=== PATIENT | male | born 1945 | race Caucasian/White ===

== ENCOUNTER 2018-01-07 18:26 | Inpatient (IN) | payer MEDICARE, MEDICAID ==
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
[2018-01-07 18:55] LABS: % BASOPHILS 0.4 % (0.0-2.0); % EOSINOPHILS 0.8 % (0.0-5.0); % LYMPHOCYTES 40.1 % (20.0-50.0); % NEUTROPHILS 49.7 % (40.0-80.0); HEMATOCRIT 36.2 % (41.0-60); HEMOGLOBIN 12.1 gm/dL (12-16); LYMPHOCYTE ABSOLUTE 2.1 Th/cmm (1.5-3.0); MEAN CELL VOLUME 82.7 fl (80-99); MEAN CORPUSCULAR HEMOGLOBIN 27.5 pg (27.0-31.0); MEAN CORPUSCULAR HGB CONC 33.3 pg (28.0-36.0); MEAN PLATELET VOLUME 8.7 fl; MONOCYTE ABSOLUTE 0.5 Th/cmm (0.3-1.0); NEUTROPHILE ABSOLUTE 2.6 Th/cmm (1.8-8.0); PLATELET COUNT 216 Th/cmm (150-400); RED BLOOD COUNT 4.38 Mil/cmm (3.80-5.80); RED CELL DISTRIBUTION WIDTH 15.3 % (11.5-20.0); WHITE BLOOD COUNT 5.2 Th/cmm (4.8-10.8)
[2018-01-07 19:11] LABS: ALB/GLOB RATIO 1.1 (1.0-1.8); ALBUMIN 3.6 gm/dL (4.2-5.5); ANION GAP 11.4 (7.0-16.0); BILIRUBIN,TOTAL 0.3 mg/dL (0.3-1.0); CARBON DIOXIDE 25.4 mEq/L (21.0-31.0); CREATININE - SERUM 1.5 mg/dL (0.7-1.3); GFR AFRICAN-AMERICAN 59.5 ml/min (>90); GFR NON AFRICAN-AMERICAN 49.2 ml/min; POTASSIUM SERUM 3.8 mEq/L (3.5-5.1)
[2018-01-07] MEDS ORDERED: Magnesium Hydroxide (MOM) 30 mL UDC PO PRN (20:20)
[2018-01-07] MEDS ORDERED: Potassium Chloride 20 mEq ER Tab PO PRN (20:25)
[2018-01-07] MEDS ORDERED: Morphine Sulfate 4 mg/mL 1mL Syr IVP PRN (20:25)
[2018-01-07] MEDS ORDERED: Mag Sulfate 2gm/50mL Premix 2 GM/50 ML BAG IV PRN (20:25)
[2018-01-07] MEDS ORDERED: Potassium Chloride 40 MEQ, Lidocaine 1% 20mL Vial 25 MG in Sodium Chloride 0.9% 250 ML IV PRN (20:25)
[2018-01-07 20:53] LABS: URINE MICROSCOPIC INDICATED? YES; URINE SOURCE CLEAN C
[2018-01-07 20:59] LABS: URINE BILIRUBIN NEGATIVE (NEGATIVE); URINE BLOOD TRACE (NEGATIVE); URINE GLUCOSE (UA) NEGATIVE (NEGATIVE); URINE KETONE NEGATIVE (NEGATIVE); URINE LEUKOCYTE ESTERASE NEGATIVE (NEGATIVE); URINE NITRATE NEGATIVE (NEGATIVE); URINE PH 7.5 (4.6 - 8.0); URINE PROTEIN TRACE mg/dL (NEGATIVE); URINE UROBILINOGEN 0.2 E.U./dL (0.2 - 1.0)
[2018-01-07 21:00] LABS: URINE CLARITY CLEAR (CLEAR); URINE COLOR YELLOW
[2018-01-07 21:01] LABS: URINE BACTERIA NONE SEEN /hpf (NONE SEEN); URINE EPITHELIAL CELLS NONE SEEN /lpf (FEW); URINE RBC NONE SEEN /hpf (0-5); URINE WBC NONE SEEN /hpf (0-5)
[2018-01-07] MEDS: Sodium Chloride 0.9% 1,000 ML IV SCH (22:52)
[2018-01-08] MEDS ORDERED: Pneumococcal Vaccine 0.5 mL Vial IM ONE (00:37)
[2018-01-08 06:44] VITALS: BP 145/56
[2018-01-08 07:13] LABS: BUN - UREA NITROGEN 28 mg/dL (7-25); CARBON DIOXIDE 27.3 mEq/L (21.0-31.0); CREATININE - SERUM 1.4 mg/dL (0.7-1.3); GFR AFRICAN-AMERICAN > 60.0 ml/min (>90); GFR NON AFRICAN-AMERICAN 53.3 ml/min; GLUCOSE 101 mg/dL (70-105)
[2018-01-08 08:21] LABS: ANION GAP 10.4 (7.0-16.0); CHLORIDE 103 mEq/L (98-107); POTASSIUM SERUM 3.7 mEq/L (3.5-5.1); SODIUM SERUM 137 mEq/L (136-145)
[2018-01-08] MEDS: Ferrous Sulfate 325 MG TAB PO SCH ×2 (08:46→09:02)
[2018-01-08] MEDS: Aspirin 81mg Chewable Tab PO SCH (08:46)
[2018-01-08] MEDS: Diltiazem 30 mg Tab PO SCH ×2 (08:46→16:52)
[2018-01-08] MEDS ORDERED: Non-Formulary Item 1 EA (Apixaban [Eliquis] 5 MG) PO SCH (09:00)
[2018-01-08] MEDS ORDERED: ALFUZOSIN HCL 10 MG PO SCH (09:00)
--- NOTE | 2018-01-08 10:54 | Diagnostic Imaging Report ---
Portable chest x-ray HISTORY: Shortness of breath The overall heart size is difficult to assess with portable technique. No acute focal pulmonary processes. No hilar or mediastinal abnormalities. IMPRESSION: No acute abnormalities
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
[2018-01-08] MEDS: Sodium Chloride 0.9% 1,000 ML IV SCH (12:42)
[2018-01-08] MEDS ORDERED: VTE Chemical Prophylaxis Screen/Admission MC PRN (13:41)
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
[2018-01-09] MEDS: Sodium Chloride 0.9% 1,000 ML IV SCH ×2 (02:13→14:41)
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
[2018-01-09 06:00] LABS: ANION GAP 9.3 (7.0-16.0); BUN - UREA NITROGEN 26 mg/dL (7-25); CALCIUM SERUM 9.1 mg/dL (8.6-10.3); CARBON DIOXIDE 26.7 mEq/L (21.0-31.0); CHLORIDE 105 mEq/L (98-107); CREATININE - SERUM 1.4 mg/dL (0.7-1.3); GFR AFRICAN-AMERICAN > 60.0 ml/min (>90); GFR NON AFRICAN-AMERICAN 53.3 ml/min; GLUCOSE 93 mg/dL (70-105); SODIUM SERUM 137 mEq/L (136-145)
[2018-01-09] MEDS: Diltiazem 30 mg Tab PO SCH ×2 (08:35→16:41)
[2018-01-09] MEDS: Ferrous Sulfate 325 MG TAB PO SCH (08:35)
[2018-01-09] MEDS: Aspirin 81mg Chewable Tab PO SCH (08:36)
--- NOTE | 2018-01-09 10:44 | General Progress Note ---
Subjective - Review of Systems Service Date: 01/09/18 Subjective: Pt seen and eval. confused in bed. No n,v,d or cp. Seen by Psych and cardio. No chest pain right now. No fevers or chills. Objective - Results Result Diagrams: 01/07/18 18:43 01/09/18 04:45 Recent Labs: Laboratory Last Values WBC 5.2 Th/cmm (4.8-10.8) 01/07/18 18:43 RBC 4.38 Mil/cmm (3.80-5.80) 01/07/18 18:43 Hgb 12.1 gm/dL (12-16) 01/07/18 18:43 Hct 36.2 % (41.0-60) L 01/07/18 18:43 MCV 82.7 fl (80-99) 01/07/18 18:43 MCH 27.5 pg (27.0-31.0) 01/07/18 18:43 MCHC Differential 33.3 pg (28.0-36.0) 01/07/18 18:43 RDW 15.3 % (11.5-20.0) 01/07/18 18:43 Plt Count 216 Th/cmm (150-400) 01/07/18 18:43 MPV 8.7 fl 01/07/18 18:43 Neutrophils % 49.7 % (40.0-80.0) 01/07/18 18:43 Lymphocytes % 40.1 % (20.0-50.0) 01/07/18 18:43 Monocytes % 9.0 % (2.0-10.0) 01/07/18 18:43 Eosinophils % 0.8 % (0.0-5.0) 01/07/18 18:43 Basophils % 0.4 % (0.0-2.0) 01/07/18 18:43 Sodium 137 mEq/L (136-145) 01/09/18 04:45 Potassium 4.0 mEq/L (3.5-5.1) 01/09/18 04:45 Chloride 105 mEq/L (98-107) 01/09/18 04:45 Carbon Dioxide 26.7 mEq/L (21.0-31.0) 01/09/18 04:45 Anion Gap 9.3 (7.0-16.0) 01/09/18 04:45 BUN 26 mg/dL (7-25) H 01/09/18 04:45 Creatinine 1.4 mg/dL (0.7-1.3) H 01/09/18 04:45 Est GFR ( Amer) > 60.0 ml/min (>90) 01/09/18 04:45 Est GFR (Non-Af Amer) 53.3 ml/min 01/09/18 04:45 BUN/Creatinine Ratio 18.6 01/09/18 04:45 Glucose 93 mg/dL (70-105) 01/09/18 04:45 Calcium 9.1 mg/dL (8.6-10.3) 01/09/18 04:45 Magnesium 2.0 mg/dL (1.9-2.7) 01/07/18 18:43 Total Bilirubin 0.3 mg/dL (0.3-1.0) 01/07/18 18:43 AST 19 U/L (13-39) 01/07/18 18:43 ALT 8 U/L (7-52) 01/07/18 18:43 Alkaline Phosphatase 64 U/L (34-104) 01/07/18 18:43 Troponin I 0.09 ng/mL (0.01-0.05) H* 01/08/18 06:10 B-Natriuretic Peptide 266.0 pg/mL (5.0-100.0) H 01/09/18 04:45 Total Protein 7.0 gm/dL (6.0-8.3) 01/07/18 18:43 Albumin 3.6 gm/dL (4.2-5.5) L 01/07/18 18:43 Globulin 3.4 gm/dL 01/07/18 18:43 Albumin/Globulin Ratio 1.1 (1.0-1.8) 01/07/18 18:43 Triglycerides 84 mg/dL (<150) 01/07/18 18:43 Cholesterol 168 mg/dL (<200) 01/07/18 18:43 LDL Cholesterol Direct 81 mg/dL (75-193) 01/07/18 18:43 HDL Cholesterol 72 mg/dL (23-92) 01/07/18 18:43 TSH 0.82 uIU/ml (0.34-5.60) 01/07/18 18:43 Urine Source CLEAN C 01/07/18 20:46 Urine Color YELLOW 01/07/18 20:46 Urine Clarity CLEAR (CLEAR) 01/07/18 20:46 Urine pH 7.5 (4.6 - 8.0) 01/07/18 20:46 Ur Specific [place] 1.010 (1.005-1.030) 01/07/18 20:46 Urine Protein TRACE mg/dL (NEGATIVE) 01/07/18 20:46 Urine Glucose (UA) NEGATIVE mg/dL (NEGATIVE) 01/07/18 20:46 Urine Ketones NEGATIVE mg/dL (NEGATIVE) 01/07/18 20:46 Urine Blood TRACE (NEGATIVE) 01/07/18 20:46 Urine Nitrate NEGATIVE (NEGATIVE) 01/07/18 20:46 Urine Bilirubin NEGATIVE (NEGATIVE) 01/07/18 20:46 Urine Urobilinogen 0.2 E.U./dL (0.2 - 1.0) 01/07/18 20:46 Ur Leukocyte Esterase NEGATIVE (NEGATIVE) 01/07/18 20:46 Urine RBC NONE SEEN /hpf (0-5) 01/07/18 20:46 Urine WBC NONE SEEN /hpf (0-5) 01/07/18 20:46 Ur Epithelial Cells NONE SEEN /lpf (FEW) 01/07/18 20:46 Urine Bacteria NONE SEEN /hpf (NONE SEEN) 01/07/18 20:46 - Physical Exam Vitals and I&O: Vital Signs Temp 97.8 F 01/09/18 04:00 Pulse 55 01/09/18 08:35 Resp 18 01/09/18 04:00 BP 138/68 01/09/18 04:00 Pulse Ox 94 01/09/18 04:00 Intake & Output 01/08/18 01/09/18 01/09/18 18:59 06:59 18:59 Intake Total 2030. 848.75 Output Total 3 Balance 845.75 Weight (lbs) 65.998 kg 68.181 kg Intake: Intake, IV Amount 1471.25 528.75 Sodium Chloride 0.9% 1, 1471.25 528.75 000 ml @ 75 mls/hr IV . [id number] [facility] Rx#:[id number] Oral 560 320 Output: Urine 3 Other: # Voids 4 1 # Bowel Movements 0 Weight Source Bedscale Bedscale Active Medications: Current Medications Acetaminophen (Tylenol) 650 mg PO Q6H PRN PRN Reason: HEADACHE/TEMP ABOVE 100F Stop: 03/08/18 20:24 Aspirin (Aspirin Chewable) 81 mg PO DAILY [facility] Stop: 03/09/18 08:59 Last Admin: 01/09/18 08:36 Dose: 81 mg Atropine Sulfate (Isopto Atropine 1% Oph Soln) 1 drop SL BID [facility] Stop: 03/09/18 08:59 Last Admin: 01/09/18 08:36 Dose: 1 drop Brimonidine Tartrate (Alphagan 0.2% Oph Soln) 1 drop EACH EYE TID [facility] Stop: 03/08/18 20:59 Last Admin: 01/09/18 08:36 Dose: 1 drop Carbidopa/Levodopa (Sinemet 25mg-100 Mg) 2.5 tab PO QID [facility] Stop: 03/08/18 20:59 Last Admin: 01/09/18 08:35 Dose: 2.5 tab Diltiazem HCl (Cardizem) 30 mg PO BID [facility] Stop: 03/09/18 08:59 Last Admin: 01/09/18 08:35 Dose: 30 mg Docusate Sodium (Colace) 250 mg PO DAILY [facility] Stop: 03/09/18 08:59 Last Admin: 01/09/18 08:36 Dose: 250 mg Donepezil HCl (Aricept) 10 mg PO DAILY [facility] Stop: 03/09/18 08:59 Last Admin: 01/09/18 08:35 Dose: 10 mg Dorzolamide HCl (Trusopt 2% Oph Soln) 1 drop EACH EYE TID [facility] Stop: 03/08/18 20:59 Last Admin: 01/09/18 08:37 Dose: Not Given Ferrous Sulfate (Iron) 325 mg PO DAILY [facility] Stop: 03/09/18 08:59 Last Admin: 01/09/18 08:35 Dose: 325 mg Finasteride (Proscar) 5 mg PO DAILY [facility] PRN Reason: Protocol Stop: 03/09/18 08:59 Last Admin: 01/09/18 08:35 Dose: 5 mg Potassium Chloride 40 meq/Lidocaine HCl 25 mg/ Sodium Chloride 272.5 mls @ 68 mls/hr IV DAILY PRN PRN Reason: k level less than 3.2 Stop: 03/08/18 20:24 Magnesium Sulfate (Magnesium Sulfate Premix) 2 gm in 50 mls @ 25 mls/hr IV DAILY PRN PRN Reason: Magnesium level less than 1.6 Stop: 03/08/18 20:24 Sodium Chloride (Nacl 0.9%) 1,000 mls @ 75 mls/hr IV .[id number] [facility] Stop: 03/08/18 20:29 Last Admin: 01/09/18 02:13 Dose: 75 mls/hr Latanoprost (Xalatan 0.005% Ophth Soln) 1 drop EACH EYE HS [facility] Stop: 03/08/18 20:59 Last Admin: 01/08/18 21:00 Dose: 1 drop Lorazepam (Ativan) 2 mg IVP Q4HR PRN; Protocol PRN Reason: Anxiety Stop: 03/08/18 20:24 Magnesium Hydroxide (Milk Of Magnesia) 30 ml PO HS PRN PRN Reason: Constipation Stop: 03/08/18 20:19 Magnesium Oxide (Mag-Oxide) 400 mg PO BID PRN PRN Reason: Mg less than 1.9 Stop: 03/08/18 20:24 Miscellaneous (Vte Chemical Prophylaxis Screen/ Admission) 1 ea MC PRN PRN PRN Reason: PROTOCOL Stop: 03/09/18 13:40 Morphine Sulfate (Morphine) 1 mg IVP Q4HR PRN PRN Reason: Severe Pain Stop: 03/08/18 20:24 Ondansetron HCl (Zofran) 4 mg IVP Q6H PRN PRN Reason: Nausea / Vomiting Stop: 03/08/18 20:24 Potassium Chloride (Klor-Con) 40 meq PO DAILY PRN PRN Reason: k level less than 3.5 Stop: 03/08/18 20:24 Rivaroxaban (Xarelto) 15 mg PO DAILY [facility] Stop: 03/10/18 08:59 Last Admin: 01/09/18 08:34 Dose: 15 mg Tamsulosin HCl (Flomax) 0.8 mg PO DAILY [facility] Stop: 03/09/18 11:59 Last Admin: 01/09/18 08:35 Dose: 0.8 mg Zolpidem Tartrate (Ambien) 5 mg PO HS PRN PRN Reason: Insomnia Stop: 03/08/18 20:59 General: No acute distress HEENT: Atraumatic, PERRLA Neck: Supple, no JVD Cardiovascular: Regular rate, Normal S1, Normal S2 Lungs: Clear to auscultation Assessment/Plan - Assessment Assessment: VMN Elev trop ME Psychosis A fib NANCY with exac BPH Mild malnut Unsteady gait Parkinson's disease - Plan Plan: On IV fluids. Fu on repeat trop and echo, per cardio. FU on chem panel. On ativan as needed. Psych following. PT eval. Nutritional Asmnt/Malnutr-PDOC - Dietary Evaluation Malnutrition Findings (Please click <Entered> for more info): Nutritional Asmnt/Malnutrition Start: 01/08/18 15: 55 Text: Status: Complete Freq: Document 01/08/18 15:55 HENG (Rec: 01/08/18 16:14 [email or web address]) Nutritional Asmnt/Malnutrition Patient General Information Nutritional Screening High Risk Consult Diagnosis ALOC Pertinent Medical Hx/Surgical Hx alzheimers, afib, BPH Subjective Information Consult received for pressure ulcer and bedridden. Pt seen sitting up in bed for lunch at time of visit. Pt denied chewing or swallowing difficulty on current diet. Pt stated appetite is fine and hes is tired. Per RN, pt consumed about 35-40% of breakfast, pt felt hungery may eat better at lunch. No visible fat loss under the eyes or muscle wasting in the temporal region noted. Current Diet Order/ Nutrition Support Cardiac Pertinent Medications colace, Iron, Nacl 0.9% Pertinent Labs 01/08 BUN 28, Cr 1.4, glucose 101 01/07 BUN 32, Cr 1.5, glucose 111 Nutritional Hx/Data Height 2.18 m Height (Calculated Centimeters) 218.4 Current Weight (lbs) 65.771 kg Weight (Calculated Kilograms) 65.8 Weight (Calculated Grams) 09519.9 [place] Body Weight 190 Body Mass Index (BMI) 13.8 GI Symptoms GI Symptoms None Last BM not indicated Difficult in: None Skin Integrity/Comment: abrasion ulcer to right lower leg, left lateral knee, pressure ulcer to coccyx Estimated Nutritional Goals BEE in Kcals: Using Current wt Calories/Kcals/Kg 27-32 Kcals Calculated 1329-4571 Protein: Using Current wt Protein g/k.2-1.4 monitor renal labs Protein Calculated 79-92 Fluid: ml 1755-2080ml (1ml/kcal) Nutritional Problem 2. Problem Problem altered nutritioin related labs Etiology possible renal dysfunction Signs/Symptoms: BUN 28-32, Cr 1.4-1.5 1. Problem Problem increased nutrition needs ( calorie and protein) Etiology increased metabolic demand for wound healing Signs/Symptoms: pressure ulcer to coccyx Malnutrition Alert Is there a minimum of two criteria No selected? Query Text:Check all the applicable criteria. A minimum of two criteria are recommended for diagnosis of either severe or non-severe malnutrition. Malnutrition Related to Morbid Obesity Malnutrition related to morbid obesity No Intervention/Recommendation Comments 1. Continue with cardiac diet as ordered. 2. Monitor PO intake, wt, labs and skin integrity 3. F/U as high risk in 2-3 days, 01/10-01/11 Expected Outcomes/Goals Expected Outcomes/Goals 1. PO intake to meet at least 75% of nutritional needs. 2. Wt stability, skin integrity to improve, labs to approach WNL.
--- NOTE | 2018-01-09 17:11 | Cardiology ---
01/09/[address] Patel. M-MODE ECHOCARDIOGRAM: Mitral valve, anterior leaflet of mitral valve shows normal excursion, EF velocity. Posterior leaflet of mitral valve shows normal excursion. Left ventricle posterior shows increased thickness, normal excursion. Interventricular septum shows increased thickness, normal excursion, hypertrophy of the left ventricle, ejection fraction 51%. Left atrium normal. Aortic root shows normal dimension, normal excursion of aortic leaflets. CONCLUSION: Hypertrophy of the left ventricle, ejection fraction 51%. 2D ECHO: Long axis view showed normal-sized left ventricle with hypertrophy of the left ventricle. Left atrium normal. Aortic root shows normal dimension, normal excursion of aortic leaflets. Short axis view of mitral valve normal. Short axis view of aortic valve normal. Apical four chamber view showed normal-sized left ventricle, left atrium, right ventricle, right atrium, tricuspid and mitral valve. Ejection fraction ___%. CONCLUSION: Hypertrophy of the left ventricle, ejection fraction 51%. Doppler study shows right ventricular systolic pressure 28 mmHg. Mild mitral regurgitation, mild tricuspid regurgitation. JOB# [id number]
--- NOTE | 2018-01-09 23:24 | Progress Notes ---
DATE: 01/09/2018 SUBJECTIVE: Staff was spoken to. The patient is interviewed. Mood is noted to be irritable. Affect is constricted. The patient's coping skills are noted to be very poor at this time. Insight and judgment are also noted to be very much impaired. The patient is not providing much of information. Coping skills at this time are noted to be very poor. No side effects to the medications are noted and since the patient has been getting easily irritable, it is decided to start the patient on 5 mg of the Haldol on p.r.n. basis for his agitation and follow the patient with the supportive therapy. JOB# [id number]
[2018-01-10] MEDS: Sodium Chloride 0.9% 1,000 ML IV SCH ×2 (01:50→17:26)
[2018-01-10 07:10] LABS: ANION GAP 8.9 (7.0-16.0); CALCIUM SERUM 8.8 mg/dL (8.6-10.3); CARBON DIOXIDE 25.2 mEq/L (21.0-31.0); CREATININE - SERUM 1.6 mg/dL (0.7-1.3); GFR AFRICAN-AMERICAN 55.2 ml/min (>90); GFR NON AFRICAN-AMERICAN 45.6 ml/min; POTASSIUM SERUM 4.1 mEq/L (3.5-5.1)
[2018-01-10] MEDS: Aspirin 81mg Chewable Tab PO SCH (08:40)
[2018-01-10] MEDS: Diltiazem 30 mg Tab PO SCH ×2 (08:40→17:28)
[2018-01-10] MEDS: Ferrous Sulfate 325 MG TAB PO SCH (08:41)
--- NOTE | 2018-01-10 10:38 | General Progress Note ---
Subjective - Review of Systems Service Date: 01/10/18 Subjective: Pt seen and eval. confused in bed. No n,v,d or cp. Seen by Psych and cardio. No chest pain right now. No fevers or chills. Pt has been refusing care. I had a discussion with him-he said he'll allow the IV to be inserted. Objective - Results Result Diagrams: 01/07/18 18:43 01/10/18 06:32 Recent Labs: Laboratory Last Values WBC 5.2 Th/cmm (4.8-10.8) 01/07/18 18:43 RBC 4.38 Mil/cmm (3.80-5.80) 01/07/18 18:43 Hgb 12.1 gm/dL (12-16) 01/07/18 18:43 Hct 36.2 % (41.0-60) L 01/07/18 18:43 MCV 82.7 fl (80-99) 01/07/18 18:43 MCH 27.5 pg (27.0-31.0) 01/07/18 18:43 MCHC Differential 33.3 pg (28.0-36.0) 01/07/18 18:43 RDW 15.3 % (11.5-20.0) 01/07/18 18:43 Plt Count 216 Th/cmm (150-400) 01/07/18 18:43 MPV 8.7 fl 01/07/18 18:43 Neutrophils % 49.7 % (40.0-80.0) 01/07/18 18:43 Lymphocytes % 40.1 % (20.0-50.0) 01/07/18 18:43 Monocytes % 9.0 % (2.0-10.0) 01/07/18 18:43 Eosinophils % 0.8 % (0.0-5.0) 01/07/18 18:43 Basophils % 0.4 % (0.0-2.0) 01/07/18 18:43 Sodium 136 mEq/L (136-145) 01/10/18 06:32 Potassium 4.1 mEq/L (3.5-5.1) 01/10/18 06:32 Chloride 106 mEq/L (98-107) 01/10/18 06:32 Carbon Dioxide 25.2 mEq/L (21.0-31.0) 01/10/18 06:32 Anion Gap 8.9 (7.0-16.0) 01/10/18 06:32 BUN 27 mg/dL (7-25) H 01/10/18 06:32 Creatinine 1.6 mg/dL (0.7-1.3) H 01/10/18 06:32 Est GFR ( Amer) 55.2 ml/min (>90) 01/10/18 06:32 Est GFR (Non-Af Amer) 45.6 ml/min 01/10/18 06:32 BUN/Creatinine Ratio 16.9 01/10/18 06:32 Glucose 87 mg/dL (70-105) 01/10/18 06:32 Calcium 8.8 mg/dL (8.6-10.3) 01/10/18 06:32 Magnesium 2.0 mg/dL (1.9-2.7) 01/07/18 18:43 Total Bilirubin 0.3 mg/dL (0.3-1.0) 01/07/18 18:43 AST 19 U/L (13-39) 01/07/18 18:43 ALT 8 U/L (7-52) 01/07/18 18:43 Alkaline Phosphatase 64 U/L (34-104) 01/07/18 18:43 Troponin I 0.09 ng/mL (0.01-0.05) H* 01/08/18 06:10 B-Natriuretic Peptide 266.0 pg/mL (5.0-100.0) H 01/09/18 04:45 Total Protein 7.0 gm/dL (6.0-8.3) 01/07/18 18:43 Albumin 3.6 gm/dL (4.2-5.5) L 01/07/18 18:43 Globulin 3.4 gm/dL 01/07/18 18:43 Albumin/Globulin Ratio 1.1 (1.0-1.8) 01/07/18 18:43 Triglycerides 84 mg/dL (<150) 01/07/18 18:43 Cholesterol 168 mg/dL (<200) 01/07/18 18:43 LDL Cholesterol Direct 81 mg/dL (75-193) 01/07/18 18:43 HDL Cholesterol 72 mg/dL (23-92) 01/07/18 18:43 TSH 0.82 uIU/ml (0.34-5.60) 01/07/18 18:43 Urine Source CLEAN C 01/07/18 20:46 Urine Color YELLOW 01/07/18 20:46 Urine Clarity CLEAR (CLEAR) 01/07/18 20:46 Urine pH 7.5 (4.6 - 8.0) 01/07/18 20:46 Ur Specific [place] 1.010 (1.005-1.030) 01/07/18 20:46 Urine Protein TRACE mg/dL (NEGATIVE) 01/07/18 20:46 Urine Glucose (UA) NEGATIVE mg/dL (NEGATIVE) 01/07/18 20:46 Urine Ketones NEGATIVE mg/dL (NEGATIVE) 01/07/18 20:46 Urine Blood TRACE (NEGATIVE) 01/07/18 20:46 Urine Nitrate NEGATIVE (NEGATIVE) 01/07/18 20:46 Urine Bilirubin NEGATIVE (NEGATIVE) 01/07/18 20:46 Urine Urobilinogen 0.2 E.U./dL (0.2 - 1.0) 01/07/18 20:46 Ur Leukocyte Esterase NEGATIVE (NEGATIVE) 01/07/18 20:46 Urine RBC NONE SEEN /hpf (0-5) 01/07/18 20:46 Urine WBC NONE SEEN /hpf (0-5) 01/07/18 20:46 Ur Epithelial Cells NONE SEEN /lpf (FEW) 01/07/18 20:46 Urine Bacteria NONE SEEN /hpf (NONE SEEN) 01/07/18 20:46 - Physical Exam Vitals and I&O: Vital Signs Temp 98.3 F 01/10/18 04:00 Pulse 55 01/10/18 08:40 Resp 18 01/10/18 04:00 BP 167/74 01/10/18 04:00 Pulse Ox 100 01/10/18 04:00 Intake & Output 01/09/18 01/10/18 01/10/18 18:59 06:59 18:59 Intake Total 2647.5 500 Balance 2647.5 500 Weight (lbs) 68.175 kg 68.175 kg Intake: Intake, IV Amount 1247.5 Sodium Chloride 0.9% 1, 1247.5 000 ml @ 75 mls/hr IV . [id number] [facility] Rx#:[id number] Oral 1400 500 Other: # Voids 4 2 # Bowel Movements 1 2 Stool Characteristics Soft Soft Formed [place] Weight Source Bedscale Estimated Active Medications: Current Medications Acetaminophen (Tylenol) 650 mg PO Q6H PRN PRN Reason: HEADACHE/TEMP ABOVE 100F Stop: 03/08/18 20:24 Aspirin (Aspirin Chewable) 81 mg PO DAILY [facility] Stop: 03/09/18 08:59 Last Admin: 01/10/18 08:40 Dose: 81 mg Atropine Sulfate (Isopto Atropine 1% Ophth Soln) 1 drop SL BID [place] Stop: 03/09/18 08:59 Last Admin: 01/10/18 08:41 Dose: 1 drop Brimonidine Tartrate (Alphagan 0.2% Ophth Soln) 1 drop EACH EYE TID [facility] Stop: 03/08/18 20:59 Last Admin: 01/10/18 08:41 Dose: 1 drop Carbidopa/Levodopa (Sinemet 25mg-100 Mg) 2.5 tab PO QID [facility] Stop: 03/08/18 20:59 Last Admin: 01/10/18 08:39 Dose: 2.5 tab Diltiazem HCl (Cardizem) 30 mg PO BID [facility] Stop: 03/09/18 08:59 Last Admin: 01/10/18 08:40 Dose: 30 mg Docusate Sodium (Colace) 250 mg PO DAILY [facility] Stop: 03/09/18 08:59 Last Admin: 01/10/18 08:41 Dose: 250 mg Donepezil HCl (Aricept) 10 mg PO DAILY [facility] Stop: 03/09/18 08:59 Last Admin: 01/10/18 08:41 Dose: 10 mg Dorzolamide HCl (Trusopt 2% Ophth Soln) 1 drop EACH EYE TID [facility] Stop: 03/08/18 20:59 Last Admin: 01/10/18 08:42 Dose: Not Given Ferrous Sulfate (Iron) 325 mg PO DAILY [facility] Stop: 03/09/18 08:59 Last Admin: 01/10/18 08:41 Dose: 325 mg Finasteride (Proscar) 5 mg PO DAILY [facility] PRN Reason: Protocol Stop: 03/09/18 08:59 Last Admin: 01/10/18 08:41 Dose: 5 mg Haloperidol (Haldol) 0.5 mg PO BID [facility] PRN Reason: Protocol Stop: 03/10/18 16:59 Last Admin: 01/10/18 08:41 Dose: 0.5 mg Potassium Chloride 40 meq/Lidocaine HCl 25 mg/ Sodium Chloride 272.5 mls @ 68 mls/hr IV DAILY PRN PRN Reason: k level less than 3.2 Stop: 03/08/18 20:24 Magnesium Sulfate (Magnesium Sulfate Premix) 2 gm in 50 mls @ 25 mls/hr IV DAILY PRN PRN Reason: Magnesium level less than 1.6 Stop: 03/08/18 20:24 Sodium Chloride (Nacl 0.9%) 1,000 mls @ 75 mls/hr IV .[id number] [facility] Stop: 03/08/18 20:29 Last Admin: 01/10/18 01:50 Dose: Not Given Latanoprost (Xalatan 0.005% Ophth Soln) 1 drop EACH EYE HS [facility] Stop: 03/08/18 20:59 Last Admin: 01/09/18 22:02 Dose: Not Given Lorazepam (Ativan) 2 mg IVP Q4HR PRN; Protocol PRN Reason: Anxiety Stop: 03/08/18 20:24 Magnesium Hydroxide (Milk Of Magnesia) 30 ml PO HS PRN PRN Reason: Constipation Stop: 03/08/18 20:19 Magnesium Oxide (Mag-Oxide) 400 mg PO BID PRN PRN Reason: Mg less than 1.9 Stop: 03/08/18 20:24 Miscellaneous (Vte Chemical Prophylaxis Screen/ Admission) 1 ea [facility] PRN PRN PRN Reason: PROTOCOL Stop: 03/09/18 13:40 Morphine Sulfate (Morphine) 1 mg IVP Q4HR PRN PRN Reason: Severe Pain Stop: 03/08/18 20:24 Ondansetron HCl (Zofran) 4 mg IVP Q6H PRN PRN Reason: Nausea / Vomiting Stop: 03/08/18 20:24 Potassium Chloride (Klor-Con) 40 meq PO DAILY PRN PRN Reason: k level less than 3.5 Stop: 03/08/18 20:24 Rivaroxaban (Xarelto) 15 mg PO DAILY [facility] Stop: 03/10/18 08:59 Last Admin: 01/10/18 08:39 Dose: 15 mg Tamsulosin HCl (Flomax) 0.8 mg PO DAILY [facility] Stop: 03/09/18 11:59 Last Admin: 01/10/18 08:40 Dose: 0.8 mg Zolpidem Tartrate (Ambien) 5 mg PO HS PRN PRN Reason: Insomnia Stop: 03/08/18 20:59 General: No acute distress HEENT: Atraumatic, PERRLA Neck: Supple, no JVD Cardiovascular: Regular rate, Normal S1, Normal S2 Lungs: Clear to auscultation Assessment/Plan - Assessment Assessment: VMN Elev trop ME Psychosis A fib NANCY with exac BPH Mild malnut Unsteady gait Parkinson's disease - Plan Plan: On IV fluids. Fu on repeat trop and echo, per cardio. FU on chem panel. On ativan as needed. Psych following. PT eval. Advised Pt benefits of IV-he agrees to let us try to insert it again. Nutritional Asmnt/Malnutr-PDOC - Dietary Evaluation Malnutrition Findings (Please click <Entered> for more info): Nutritional Asmnt/Malnutrition Start: 01/08/18 15: 55 Text: Status: Complete Freq: Document 01/08/18 15:55 [facility] (Rec: 01/08/18 16:14 [email or web address]) Nutritional Asmnt/Malnutrition Patient General Information Nutritional Screening High Risk Consult Diagnosis ALOC Pertinent Medical Hx/Surgical Hx alzheimers, afib, BPH Subjective Information Consult received for pressure ulcer and bedridden. Pt seen sitting up in bed for lunch at time of visit. Pt denied chewing or swallowing difficulty on current diet. Pt stated appetite is fine and hes is tired. Per RN, pt consumed about 35-40% of breakfast, pt felt hungery may eat better at lunch. No visible fat loss under the eyes or muscle wasting in the temporal region noted. Current Diet Order/ Nutrition Support Cardiac Pertinent Medications colace, Iron, Nacl 0.9% Pertinent Labs 01/08 BUN 28, Cr 1.4, glucose 101 01/07 BUN 32, Cr 1.5, glucose 111 Nutritional Hx/Data Height 2.18 m Height (Calculated Centimeters) 218.4 Current Weight (lbs) 65.771 kg Weight (Calculated Kilograms) 65.8 Weight (Calculated Grams) 27017.9 [place] Body Weight 190 Body Mass Index (BMI) 13.8 GI Symptoms GI Symptoms None Last BM not indicated Difficult in: None Skin Integrity/Comment: abrasion ulcer to right lower leg, left lateral knee, pressure ulcer to coccyx Estimated Nutritional Goals BEE in Kcals: Using Current wt Calories/Kcals/Kg 27-32 Kcals Calculated 1534-4991 Protein: Using Current wt Protein g/k.2-1.4 monitor renal labs Protein Calculated 79-92 Fluid: ml 1755-2080ml (1ml/kcal) Nutritional Problem 2. Problem Problem altered nutritioin related labs Etiology possible renal dysfunction Signs/Symptoms: BUN 28-32, Cr 1.4-1.5 1. Problem Problem increased nutrition needs ( calorie and protein) Etiology increased metabolic demand for wound healing Signs/Symptoms: pressure ulcer to coccyx Malnutrition Alert Is there a minimum of two criteria No selected? Query Text:Check all the applicable criteria. A minimum of two criteria are recommended for diagnosis of either severe or non-severe malnutrition. Malnutrition Related to Morbid Obesity Malnutrition related to morbid obesity No Intervention/Recommendation Comments 1. Continue with cardiac diet as ordered. 2. Monitor PO intake, wt, labs and skin integrity 3. F/U as high risk in 2-3 days, 01/10-01/11 Expected Outcomes/Goals Expected Outcomes/Goals 1. PO intake to meet at least 75% of nutritional needs. 2. Wt stability, skin integrity to improve, labs to approach WNL.
--- NOTE | 2018-01-10 17:17 | Progress Notes ---
DATE: 01/10/2018 SUBJECTIVE: Staff was spoken to. The patient is interviewed. Mood is noted to be irritable. Affect is constricted. The patient is still having confusion. The patient is still refusing care and the patient is not able to make a reasonable decision as to his care is concerned. The patient is still responding to internal stimuli. ASSESSMENT: The patient is still psychotic and impulsive. PLAN: To continue the patient with the supportive therapy, encouraged the patient to verbalize the concerns rather than to act out. JOB# [id number]
[2018-01-11 06:06] LABS: ANION GAP 10.1 (7.0-16.0); CALCIUM SERUM 8.7 mg/dL (8.6-10.3); CARBON DIOXIDE 22.5 mEq/L (21.0-31.0); CREATININE - SERUM 1.5 mg/dL (0.7-1.3); GFR AFRICAN-AMERICAN 59.5 ml/min (>90); GFR NON AFRICAN-AMERICAN 49.2 ml/min; POTASSIUM SERUM 4.6 mEq/L (3.5-5.1)
[2018-01-11] MEDS: Sodium Chloride 0.9% 1,000 ML IV SCH (07:02)
--- NOTE | 2018-01-11 09:08 | General Progress Note ---
Subjective - Review of Systems Service Date: 01/11/18 Subjective: Pt seen and eval. confused in bed. No n,v,d or cp. Seen by Psych and cardio. No chest pain right now. No fevers or chills. After our discussion, pt has been more complaint with care and IV. His bp has been running high. SBP was in 170s this am. Objective - Results Result Diagrams: 01/07/18 18:43 01/11/18 05:15 Recent Labs: Laboratory Last Values WBC 5.2 Th/cmm (4.8-10.8) 01/07/18 18:43 RBC 4.38 Mil/cmm (3.80-5.80) 01/07/18 18:43 Hgb 12.1 gm/dL (12-16) 01/07/18 18:43 Hct 36.2 % (41.0-60) L 01/07/18 18:43 MCV 82.7 fl (80-99) 01/07/18 18:43 MCH 27.5 pg (27.0-31.0) 01/07/18 18:43 MCHC Differential 33.3 pg (28.0-36.0) 01/07/18 18:43 RDW 15.3 % (11.5-20.0) 01/07/18 18:43 Plt Count 216 Th/cmm (150-400) 01/07/18 18:43 MPV 8.7 fl 01/07/18 18:43 Neutrophils % 49.7 % (40.0-80.0) 01/07/18 18:43 Lymphocytes % 40.1 % (20.0-50.0) 01/07/18 18:43 Monocytes % 9.0 % (2.0-10.0) 01/07/18 18:43 Eosinophils % 0.8 % (0.0-5.0) 01/07/18 18:43 Basophils % 0.4 % (0.0-2.0) 01/07/18 18:43 Sodium 136 mEq/L (136-145) 01/11/18 05:15 Potassium 4.6 mEq/L (3.5-5.1) 01/11/18 05:15 Chloride 108 mEq/L (98-107) H 01/11/18 05:15 Carbon Dioxide 22.5 mEq/L (21.0-31.0) 01/11/18 05:15 Anion Gap 10.1 (7.0-16.0) 01/11/18 05:15 BUN 28 mg/dL (7-25) H 01/11/18 05:15 Creatinine 1.5 mg/dL (0.7-1.3) H 01/11/18 05:15 Est GFR ( Amer) 59.5 ml/min (>90) 01/11/18 05:15 Est GFR (Non-Af Amer) 49.2 ml/min 01/11/18 05:15 BUN/Creatinine Ratio 18.7 01/11/18 05:15 Glucose 88 mg/dL (70-105) 01/11/18 05:15 Calcium 8.7 mg/dL (8.6-10.3) 01/11/18 05:15 Magnesium 2.0 mg/dL (1.9-2.7) 01/07/18 18:43 Total Bilirubin 0.3 mg/dL (0.3-1.0) 01/07/18 18:43 AST 19 U/L (13-39) 01/07/18 18:43 ALT 8 U/L (7-52) 01/07/18 18:43 Alkaline Phosphatase 64 U/L (34-104) 01/07/18 18:43 Troponin I 0.09 ng/mL (0.01-0.05) H* 01/08/18 06:10 B-Natriuretic Peptide 266.0 pg/mL (5.0-100.0) H 01/09/18 04:45 Total Protein 7.0 gm/dL (6.0-8.3) 01/07/18 18:43 Albumin 3.6 gm/dL (4.2-5.5) L 01/07/18 18:43 Globulin 3.4 gm/dL 01/07/18 18:43 Albumin/Globulin Ratio 1.1 (1.0-1.8) 01/07/18 18:43 Triglycerides 84 mg/dL (<150) 01/07/18 18:43 Cholesterol 168 mg/dL (<200) 01/07/18 18:43 LDL Cholesterol Direct 81 mg/dL (75-193) 01/07/18 18:43 HDL Cholesterol 72 mg/dL (23-92) 01/07/18 18:43 TSH 0.82 uIU/ml (0.34-5.60) 01/07/18 18:43 Urine Source CLEAN C 01/07/18 20:46 Urine Color YELLOW 01/07/18 20:46 Urine Clarity CLEAR (CLEAR) 01/07/18 20:46 Urine pH 7.5 (4.6 - 8.0) 01/07/18 20:46 Ur Specific [place] 1.010 (1.005-1.030) 01/07/18 20:46 Urine Protein TRACE mg/dL (NEGATIVE) 01/07/18 20:46 Urine Glucose (UA) NEGATIVE mg/dL (NEGATIVE) 01/07/18 20:46 Urine Ketones NEGATIVE mg/dL (NEGATIVE) 01/07/18 20:46 Urine Blood TRACE (NEGATIVE) 01/07/18 20:46 Urine Nitrate NEGATIVE (NEGATIVE) 01/07/18 20:46 Urine Bilirubin NEGATIVE (NEGATIVE) 01/07/18 20:46 Urine Urobilinogen 0.2 E.U./dL (0.2 - 1.0) 01/07/18 20:46 Ur Leukocyte Esterase NEGATIVE (NEGATIVE) 01/07/18 20:46 Urine RBC NONE SEEN /hpf (0-5) 01/07/18 20:46 Urine WBC NONE SEEN /hpf (0-5) 01/07/18 20:46 Ur Epithelial Cells NONE SEEN /lpf (FEW) 01/07/18 20:46 Urine Bacteria NONE SEEN /hpf (NONE SEEN) 01/07/18 20:46 - Physical Exam Vitals and I&O: Vital Signs Temp 98.2 F 01/10/18 20:00 Pulse 58 01/10/18 20:00 Resp 18 01/10/18 20:00 BP 100/62 01/10/18 20:00 Pulse Ox 98 01/10/18 20:00 Intake & Output 01/10/18 01/11/18 01/11/18 18:59 06:59 18:59 Intake Total 1200 1240 Balance 1200 1240 Weight (lbs) 68.266 kg 67.585 kg Intake: Intake, IV Amount 1000 Sodium Chloride 0.9% 1, 1000 000 ml @ 75 mls/hr IV . [id number] [facility] Rx#:[id number] Oral 1200 240 Other: # Voids 4 2 # Bowel Movements 1 1 Stool Characteristics Soft Formed Weight Source Bedscale Bedscale Active Medications: Current Medications Acetaminophen (Tylenol) 650 mg PO Q6H PRN PRN Reason: HEADACHE/TEMP ABOVE 100F Stop: 03/08/18 20:24 Aspirin (Aspirin Chewable) 81 mg PO DAILY [facility] Stop: 03/09/18 08:59 Last Admin: 01/10/18 08:40 Dose: 81 mg Atropine Sulfate (Isopto Atropine 1% Ophth Soln) 1 drop SL BID [facility] Stop: 03/09/18 08:59 Last Admin: 01/10/18 17:27 Dose: 1 drop Brimonidine Tartrate (Alphagan 0.2% Ophth Soln) 1 drop EACH EYE TID [facility] Stop: 03/08/18 20:59 Last Admin: 01/10/18 21:00 Dose: 1 drop Carbidopa/Levodopa (Sinemet 25mg-100 Mg) 2.5 tab PO QID [facility] Stop: 03/08/18 20:59 Last Admin: 01/10/18 20:59 Dose: 2.5 tab Diltiazem HCl (Cardizem) 30 mg PO BID [facility] Stop: 03/09/18 08:59 Last Admin: 01/10/18 17:28 Dose: Not Given Docusate Sodium (Colace) 250 mg PO DAILY [facility] Stop: 03/09/18 08:59 Last Admin: 01/10/18 08:41 Dose: 250 mg Donepezil HCl (Aricept) 10 mg PO DAILY [facility] Stop: 03/09/18 08:59 Last Admin: 01/10/18 08:41 Dose: 10 mg Dorzolamide HCl (Trusopt 2% Ophth Soln) 1 drop EACH EYE TID [facility] Stop: 03/08/18 20:59 Last Admin: 01/10/18 22:09 Dose: Not Given Ferrous Sulfate (Iron) 325 mg PO DAILY [facility] Stop: 03/09/18 08:59 Last Admin: 01/10/18 08:41 Dose: 325 mg Finasteride (Proscar) 5 mg PO DAILY [facility] PRN Reason: Protocol Stop: 03/09/18 08:59 Last Admin: 01/10/18 08:41 Dose: 5 mg Haloperidol (Haldol) 0.5 mg PO BID [facility] PRN Reason: Protocol Stop: 03/10/18 16:59 Last Admin: 01/10/18 17:27 Dose: 0.5 mg Potassium Chloride 40 meq/Lidocaine HCl 25 mg/ Sodium Chloride 272.5 mls @ 68 mls/hr IV DAILY PRN PRN Reason: k level less than 3.2 Stop: 03/08/18 20:24 Magnesium Sulfate (Magnesium Sulfate Premix) 2 gm in 50 mls @ 25 mls/hr IV DAILY PRN PRN Reason: Magnesium level less than 1.6 Stop: 03/08/18 20:24 Sodium Chloride (Nacl 0.9%) 1,000 mls @ 75 mls/hr IV .[id number] [facility] Stop: 03/08/18 20:29 Last Admin: 01/11/18 07:02 Dose: 75 mls/hr Latanoprost (Xalatan 0.005% Oph Soln) 1 drop EACH EYE HS [facility] Stop: 03/08/18 20:59 Last Admin: 01/10/18 21:00 Dose: 1 drop Lorazepam (Ativan) 2 mg IVP Q4HR PRN; Protocol PRN Reason: Anxiety Stop: 03/08/18 20:24 Magnesium Hydroxide (Milk Of Magnesia) 30 ml PO HS PRN PRN Reason: Constipation Stop: 03/08/18 20:19 Magnesium Oxide (Mag-Oxide) 400 mg PO BID PRN PRN Reason: Mg less than 1.9 Stop: 03/08/18 20:24 Miscellaneous (Vte Chemical Prophylaxis Screen/ Admission) 1 ea [facility] PRN PRN PRN Reason: PROTOCOL Stop: 03/09/18 13:40 Morphine Sulfate (Morphine) 1 mg IVP Q4HR PRN PRN Reason: Severe Pain Stop: 03/08/18 20:24 Ondansetron HCl (Zofran) 4 mg IVP Q6H PRN PRN Reason: Nausea / Vomiting Stop: 03/08/18 20:24 Potassium Chloride (Klor-Con) 40 meq PO DAILY PRN PRN Reason: k level less than 3.5 Stop: 03/08/18 20:24 Rivaroxaban (Xarelto) 15 mg PO DAILY [facility] Stop: 03/10/18 08:59 Last Admin: 01/10/18 08:39 Dose: 15 mg Tamsulosin HCl (Flomax) 0.8 mg PO DAILY [facility] Stop: 03/09/18 11:59 Last Admin: 01/10/18 08:40 Dose: 0.8 mg Zolpidem Tartrate (Ambien) 5 mg PO HS PRN PRN Reason: Insomnia Stop: 03/08/18 20:59 General: No acute distress HEENT: Atraumatic, PERRLA Neck: Supple, no JVD Cardiovascular: Regular rate, Normal S1, Normal S2 Lungs: Clear to auscultation Assessment/Plan - Assessment Assessment: VMN Elev trop ME Psychosis A fib NANCY with exac BPH Mild malnut Unsteady gait Parkinson's disease HTN-OOC - Plan Plan: On IV fluids. Fu on repeat trop and echo, per cardio. FU on chem panel. On ativan as needed. Psych following. PT eval. Pt will be started on Lopressor. Nutritional Asmnt/Malnutr-PDOC - Dietary Evaluation Malnutrition Findings (Please click <Entered> for more info): Nutritional Asmnt/Malnutrition Start: 01/08/18 15: 55 Text: Status: Complete Freq: Document 01/08/18 15:55 [facility] (Rec: 01/08/18 16:14 HEN [email or web address]) Nutritional Asmnt/Malnutrition Patient General Information Nutritional Screening High Risk Consult Diagnosis ALOC Pertinent Medical Hx/Surgical Hx alzheimers, afib, BPH Subjective Information Consult received for pressure ulcer and bedridden. Pt seen sitting up in bed for lunch at time of visit. Pt denied chewing or swallowing difficulty on current diet. Pt stated appetite is fine and hes is tired. Per RN, pt consumed about 35-40% of breakfast, pt felt hungery may eat better at lunch. No visible fat loss under the eyes or muscle wasting in the temporal region noted. Current Diet Order/ Nutrition Support Cardiac Pertinent Medications colace, Iron, Nacl 0.9% Pertinent Labs 01/08 BUN 28, Cr 1.4, glucose 101 01/07 BUN 32, Cr 1.5, glucose 111 Nutritional Hx/Data Height 2.18 m Height (Calculated Centimeters) 218.4 Current Weight (lbs) 65.771 kg Weight (Calculated Kilograms) 65.8 Weight (Calculated Grams) 54748.9 [place] Body Weight 190 Body Mass Index (BMI) 13.8 GI Symptoms GI Symptoms None Last BM not indicated Difficult in: None Skin Integrity/Comment: abrasion ulcer to right lower leg, left lateral knee, pressure ulcer to coccyx Estimated Nutritional Goals BEE in Kcals: Using Current wt Calories/Kcals/Kg 27-32 Kcals Calculated 2571-0515 Protein: Using Current wt Protein g/k.2-1.4 monitor renal labs Protein Calculated 79-92 Fluid: ml 1755-2080ml (1ml/kcal) Nutritional Problem 2. Problem Problem altered nutritioin related labs Etiology possible renal dysfunction Signs/Symptoms: BUN 28-32, Cr 1.4-1.5 1. Problem Problem increased nutrition needs ( calorie and protein) Etiology increased metabolic demand for wound healing Signs/Symptoms: pressure ulcer to coccyx Malnutrition Alert Is there a minimum of two criteria No selected? Query Text:Check all the applicable criteria. A minimum of two criteria are recommended for diagnosis of either severe or non-severe malnutrition. Malnutrition Related to Morbid Obesity Malnutrition related to morbid obesity No Intervention/Recommendation Comments 1. Continue with cardiac diet as ordered. 2. Monitor PO intake, wt, labs and skin integrity 3. F/U as high risk in 2-3 days, 01/10-01/11 Expected Outcomes/Goals Expected Outcomes/Goals 1. PO intake to meet at least 75% of nutritional needs. 2. Wt stability, skin integrity to improve, labs to approach WNL.
--- NOTE | 2018-01-11 09:35 | Discharge Summary ---
DATE OF DISCHARGE: 01/11/2018 CAUSE OF ADMISSION: The patient is a 72-year-old man with a history of Alzheimer dementia, AFib and malnutrition. He resides at [facility]. He was becoming weaker than usual. He was also more altered and becoming psychotic and violent towards the staff. He was found to have elevated BUN and creatinine along with psychosis in the ER. ADMITTING DIAGNOSES: 1. Vasomotor nephropathy. 2. Metabolic encephalopathy. 3. Psychosis. 4. Atrial fibrillation. 5. Dementia, Alzheimer's type with exacerbation. 6. Benign prostatic hypertrophy. 7. Mild malnutrition. 8. Unsteady gait. 9. Parkinson disease. 10. Hypertension, out of control. DISCHARGE DIAGNOSES: 1. Vasomotor nephropathy. 2. Metabolic encephalopathy. 3. Psychosis. 4. Atrial fibrillation. 5. Dementia, Alzheimer's type with exacerbation. 6. Benign prostatic hypertrophy. 7. Mild malnutrition. 8. Unsteady gait. 9. Parkinson disease. 10. Hypertension, out of control. SUMMARY OF HOSPITAL COURSE: The patient was placed on tele. His troponin was slightly elevated. BNP was elevated. Cardiology saw the patient. He has been on anticoagulation. We continued his mcc medication. Dr. Billy was the remedial reading teacher on the case and Dr. Seo has been the mission manager on the case. Chest x-ray was normal. The patient was noncompliant initially, but we had a long discussion, after that he let us insert the IV. His renal function has improved as well. He is stable to be discharged back to the nursing facility. Physical exam and labs as charted. PROGNOSIS: Fair. ACTIVITY: As tolerated. DIET: Cardiac. PROCEDURES: None. CONSULTS: Dr. Billy for Cardiology and Dr. Seo for Psychiatry. JOB# [id number]
[2018-01-11] MEDS: Ferrous Sulfate 325 MG TAB PO SCH (09:45)
[2018-01-11] MEDS: Aspirin 81mg Chewable Tab PO SCH (09:47)
[2018-01-11] MEDS: Diltiazem 30 mg Tab PO SCH ×2 (09:50→16:50)
== END 2018-01-11 18:59 | DRG 682 ==
LOC: ER 18:26 → MSI 19:30
PROVIDERS: ADMIT General Practice; ATTEND General Practice
DX: N17.0 Acute kidney failure with tubular necrosis (principal); G93.41 Metabolic encephalopathy; F02.81 Dementia in other diseases classified elsewhere, unspecified severity, with behavioral disturbance; E44.1 Mild protein-calorie malnutrition; Z68.1 Body mass index [BMI] 19.9 or less, adult; I48.91 Unspecified atrial fibrillation; G30.9 Alzheimer's disease, unspecified; N40.0 Benign prostatic hyperplasia without lower urinary tract symptoms; G20 Parkinson's disease; I10 Essential (primary) hypertension; K21.9 Gastro-esophageal reflux disease without esophagitis; H40.9 Unspecified glaucoma; R26.81 Unsteadiness on feet; R07.89 Other chest pain; F29 Unspecified psychosis not due to a substance or known physiological condition; R78.89 Finding of other specified substances, not normally found in blood; R45.87 Impulsiveness; Z87.11 Personal history of peptic ulcer disease
CPT/HCPCS: 36415-UA; 71045-TC; 80048-TC; 80053-TC; 80061-TC; 81001-TC; 83036-90; 83735-TC; 83880-TC; 84443-TC; 84484-TC; 85025-TC; 86592-TC; 93005; 97530; J2001; J3480; J7030; X3904; Z7610

== ENCOUNTER 2018-02-01 17:14 | Inpatient (IN) | payer MEDICARE, MEDICAID ==
--- NOTE | 2018-02-01 18:57 | ED Physician Chart ---
ED Chief Complaint/HPI - Patient Information Date Seen:: 02/01/18 Time Seen:: 17:15 Chief Complaint:: Agitation History of Present Illness:: onset x 2 days of agitation and hostile behavior; no report of SIs, trauma, H/as , neck pain, C/P, SOB, Abd. Pain, A/N/V/D/c, fever, chills, or urinary s/s Allergies:: Allergies Allergy/AdvReac Type Severity Reaction Status Date / Time No Known Allergies Allergy Verified 02/01/18 17:30 Vitals:: Vital Signs - 8 hr 02/01/18 17:15 Temp 97.9 F HR 58 RR 16 BP 141/56 O2 Sat % 98 Historian:: Patient, EMS Review:: Nurse's Note Reviewed, Old Chart Reviewed, EMS run form Reviewed <Kishore Chapman - Last Filed: 02/01/18 19:02> - Patient Information Allergies:: Allergies Allergy/AdvReac Type Severity Reaction Status Date / Time No Known Allergies Allergy Verified 02/01/18 17:30 Vitals:: Vital Signs - 8 hr 02/01/18 17:15 Temp 97.9 F HR 58 RR 16 BP 141/56 O2 Sat % 98 <Xander Rodriguez - Last Filed: 02/01/18 20:03> ED Review of Systems - Review of Systems General/Constitutional: No fever, No chills, No weight loss, No weakness, No diaphoresis, No edema, No loss of appetite Skin: No skin lesions, No rash, No bruising Head: No headache, No light-headedness Eyes: No loss of vision, No pain, No diplopia ENT: No earache, No nasal drainage, No sore throat, No tinnitus Neck: No neck pain, No swelling, No thyromegaly, No stiffness, No mass noted Cardio Vascular: No chest pain, No palpitations, No PND, No orthopnea, No edema Pulmonary: No SOB, No cough, No sputum, No wheezing GI: No nausea, No vomiting, No diarrhea, No pain, No melena, No hematochezia, No constipation, No hematemesis G/U: No dysuria, No frequency, No hematuria Musculoskeletal: No bone or joint pain, No back pain, No muscle pain Endocrine: No polyuria, No polydipsia Psychiatric: Prior psych history, Depression, Anxiety, No suicidal ideation, No homicidal ideation, No auditory hallucination, No visual hallucination Hematopoietic: No bruising, No lymphadenopathy Allergic/Immuno: No urticaria, No angioedema Neurological: No syncope, No focal symptoms, No weakness, No paresthesia, No headache, No seizure, No dizziness, Confusion, No vertigo <Kishore Chapman - Last Filed: 02/01/18 19:02> ED Past Medical History - Past Medical History Obtainable: Yes Past Medical History: HTN, Dyslipidemia, Dementia Family History: HTN Social History: Non Smoker, No Alcohol, No Drug Use, Single, Care Facility Surgical History: None Psychiatricy History: Depression, Bipolar, Dementia Medication: Reviewed <Kishore Chapman Last Filed: 02/01/18 19:02> Family Medical History - Family Member Mother History Unknown: Yes Ethnicity: Non- Living Status: <Kishore Chapman Filed: 02/01/18 19:02> ED Physical Exam - Physical Examination General/Constitutional: Awake, Well-developed, well-nourished, Alert, No distress, GCS 15, Non-toxic appearing, Ambulatory Head: Atraumatic Eyes: Lids, conjuctiva normal, PERRL, EOMI Skin: Nl inspection, No rash, No skin lesions, No ecchymosis, Well hydrated, No lymphadenopathy ENMT: External ears, nose nl, TM canals nl, Nasal exam nl, Lips, teeth, gums nl , Oropharynx nl, Tonsils nl Neck: Nontender, Full ROM w/o pain, No JVD, No nuchal rigidity, No bruit, No mass, No stridor Respiratory: Nl effort/Exclusion, Clear to Auscultation, No Wheeze/Rhonchi/Rales Cardio Vascular: RRR, No murmur, gallop, rubs, NL S1 S2 GI: No tenderness/rebounding/guarding, No organomegaly, No hernia, Normal BS's, Nondistended, No mass/bruits, No McBurney tenderness : No CVA tenderness Extremities: No tenderness or effusion, Full ROM, normal strength in all extremities, No edema, Normal digits & nails Neuro/Psych: Alert/oriented, DTR's symmetric, Normal sensory exam, Normal motor strength, Judgement/insight normal, Mood normal, Normal gait, No focal deficits Other Neuro/Psych comments:: = Psychomotor Agitation; no SIs; Mood/Affect: Labile Misc: Normal back, No paraspinal tenderness <Kishore Chapman - Last Filed: 02/01/18 19:02> ED Labs/Radiology/EKG Results - Lab Results Results: Laboratory Tests 02/01/18 02/01/18 19:14 19:14 WBC 5.4 RBC 4.23 Hgb 11.5 L Hct 34.9 L MCV 82.6 MCH 27.2 MCHC Differential 32.9 RDW 14.7 Plt Count 270 MPV 7.5 Neutrophils % 48.2 Lymphocytes % 42.6 Monocytes % 7.9 Eosinophils % 1.0 Basophils % 0.3 Sodium 137 Potassium 4.4 Chloride 105 Carbon Dioxide 26.5 Anion Gap 9.9 BUN 32 H Creatinine 1.6 H Est GFR ( Amer) 55.2 Est GFR (Non-Af Amer) 45.6 BUN/Creatinine Ratio 20.0 Glucose 105 Calcium 8.8 Total Bilirubin 0.3 AST 14 ALT 7 Alkaline Phosphatase 54 Total Protein 6.8 Albumin 3.6 L Globulin 3.2 Albumin/Globulin Ratio 1.1 Triglycerides 85 Cholesterol 172 LDL Cholesterol Direct 85 HDL Cholesterol 66 Salicylates < 25.0 L Acetaminophen < 10.0 L Ethyl Alcohol < 10 <Xander Rodriguez - Last Filed: 02/01/18 20:03> ED Assessment - Assessment General Assessment: Patient complained of right-sided headache and sore throat for 2-3 months. Patient was alert and stated the date was 01/01/2018. Eyes pupils equal and reactive to light. ENT normal. Neck 70 of forward flexion. Anterior chest clear to auscultation. Heart regular rhythm no murmur or extra sound. Abdomen soft nontender no organomegaly. Neurological exam nonfocal <Xander Rodriguez - Last Filed: 02/01/18 20:03> ED Septic Shock - . Is Septic Shock (SBP<90, OR Lactate>4 mmol\L) present?: No - <6hrs of presentation: Vital Signs: Vital Signs - 8 hr 02/01/18 17:15 Temp 97.9 F HR 58 RR 16 BP 141/56 O2 Sat % 98 <Kishore Chapman - Last Filed: 02/01/18 19:02> - <6hrs of presentation: Vital Signs: Vital Signs - 8 hr 02/01/18 17:15 Temp 97.9 F HR 58 RR 16 BP 141/56 O2 Sat % 98 <Xander Rodriguez - Last Filed: 02/01/18 20:03> ED Reassessment (Disposition) - Reassessment Reassessment Condition:: Improved - Diagnosis Diagnosis:: Agitation; Medical clearance; Psychosis; Bipolar Disorder <Kishore Chapman - Last Filed: 02/01/18 19:02> - Diagnosis Diagnosis:: Anemia; renal insufficiency - Patient Disposition Admitting Medical Physician:: Willie Patel Admitting Psych Physician:: Mika Murphy Condition at Disposition:: Stable, Unchanged <Xander Rodriguez - Last Filed: 02/01/18 20:03> ED Discharge Plan <Kishore Chapman - Last Filed: 02/01/18 19:02> <Xander Rodriguez - Last Filed: 02/01/18 20:03> - Patient Disposition Instructions: Psychosis
[2018-02-01 19:22] LABS: % BASOPHILS 0.3 % (0.0-2.0); % LYMPHOCYTES 42.6 % (20.0-50.0); % MONOCYTES 7.9 % (2.0-10.0); % NEUTROPHILS 48.2 % (40.0-80.0); EOSINOPHILE ABSOLUTE 0.1 Th/cmm (0.1-0.4); HEMATOCRIT 34.9 % (41.0-60); HEMOGLOBIN 11.5 gm/dL (12-16); LYMPHOCYTE ABSOLUTE 2.3 Th/cmm (1.5-3.0); MEAN CELL VOLUME 82.6 fl (80-99); MEAN CORPUSCULAR HEMOGLOBIN 27.2 pg (27.0-31.0); MEAN CORPUSCULAR HGB CONC 32.9 pg (28.0-36.0); MEAN PLATELET VOLUME 7.5 fl; MONOCYTE ABSOLUTE 0.4 Th/cmm (0.3-1.0); NEUTROPHILE ABSOLUTE 2.6 Th/cmm (1.8-8.0); PLATELET COUNT 270 Th/cmm (150-400); RED BLOOD COUNT 4.23 Mil/cmm (3.80-5.80); RED CELL DISTRIBUTION WIDTH 14.7 % (11.5-20.0); WHITE BLOOD COUNT 5.4 Th/cmm (4.8-10.8)
[2018-02-01 19:40] LABS: ACETAMINOPHEN < 10.0 ug/mL (10.0-30.0); ALB/GLOB RATIO 1.1 (1.0-1.8); ALBUMIN 3.6 gm/dL (4.2-5.5); ALKALINE PHOSPHATASE 54 U/L (34-104); ANION GAP 9.9 (7.0-16.0); BILIRUBIN,TOTAL 0.3 mg/dL (0.3-1.0); BUN - UREA NITROGEN 32 mg/dL (7-25); CALCIUM SERUM 8.8 mg/dL (8.6-10.3); CARBON DIOXIDE 26.5 mEq/L (21.0-31.0); CHLORIDE 105 mEq/L (98-107); CHOLESTEROL 172 mg/dL (<200); CREATININE - SERUM 1.6 mg/dL (0.7-1.3); GFR AFRICAN-AMERICAN 55.2 ml/min (>90); GFR NON AFRICAN-AMERICAN 45.6 ml/min; GLUCOSE 105 mg/dL (70-105); HDL -HIGH DENSITY LIPOPROTEIN 66 mg/dL (23-92); POTASSIUM SERUM 4.4 mEq/L (3.5-5.1); SALICYLATES (ASPIRIN) < 25.0 mg/L (30.0-100.0); SGOT 14 U/L (13-39); SGPT/ALT 7 U/L (7-52); SODIUM SERUM 137 mEq/L (136-145); TOTAL PROTEIN,SERUM 6.8 gm/dL (6.0-8.3); TRIGLYCERIDES 85 mg/dL (<150)
[2018-02-01 22:13] VITALS: BP 159/76
[2018-02-01] MEDS ORDERED: Maalox 30 mL Cup PO PRN (23:09)
[2018-02-01] MEDS ORDERED: Magnesium Hydroxide (MOM) 30 mL UDC PO PRN (23:09)
[2018-02-02] MEDS: Multivitamin Tab PO SCH (09:34)
[2018-02-02] MEDS ORDERED: Fleet Enema 135 mL RC PRN (12:24)
[2018-02-02] MEDS ORDERED: Magnesium Hydroxide (MOM) 30 mL UDC PO PRN (12:24)
[2018-02-02] MEDS: Pantoprazole 40 mg EC Tab PO SCH (15:41)
[2018-02-02 15:48] LABS: A1C % 6.2 % (4.0-6.0)
--- NOTE | 2018-02-02 15:55 | History & Physical ---
ADMIT DATE: 02/02/2018 HISTORY OF PRESENT ILLNESS: A 72-year-old patient presented from [facility] with complaint of acting out, crying and being combative towards the medical staff. The patient has a history of Alzheimer dementia as well as impulse control disorder and has threatened to hit the staff over at [facility]. The patient was transferred to the hospital for further evaluation. PAST MEDICAL HISTORY: Glaucoma, degenerative joint disease, AFib, hypertension, Alzheimer's dementia, major depressive disorder, anemia of chronic illness, BPH, GERD and insomnia. HOME MEDICATIONS: None. ALLERGIES: No known drug allergies. SOCIAL HISTORY: Denies tobacco, drugs or alcohol. The patient currently lives at [facility]. MEDICATIONS: Reviewed and reconciled. VITAL SIGNS: 98.2, 58, 145/80, 18. REVIEW OF SYSTEMS: Cannot be obtained because the patient does not understand questioning. ASSESSMENT AND PLAN: Metabolic encephalopathy secondary to Alzheimer dementia exacerbation, benign prostatic hypertrophy, gastroesophageal reflux disease, degenerative joint disease, glaucoma, atrial fibrillation, anemia of chronic illness, benign prostatic hypertrophy. LABORATORY DATA: Hemoglobin is 11.5. Creatinine is 1.6. PHYSICAL EXAMINATION: GENERAL: NAD. HEENT: PERRLA, EOMI. NECK: Supple. Trachea midline. CARDIOVASCULAR: Regular rate and rhythm. RESPIRATORY: CTA bilaterally. No wheezes, rales, or rhonchi. ABDOMEN: Soft, nontender, nondistended. Bowel sounds positive in all 4 quadrants. SKIN: No rash, no open wounds. MUSCULOSKELETAL: Muscle strength testing bilateral upper and lower extremities is 4/5. PSYCHIATRIC: The patient is actively hallucinating and has tangential thoughts and having difficulty listening to the questions he is being asked, answering very inappropriately. ASSESSMENT: Metabolic encephalopathy secondary to Alzheimer dementia exacerbation, degenerative joint disease, AFib, glaucoma, muscle weakness, unsteady gait, major depressive disorder, anemia of chronic illness, benign prostatic hypertrophy, and gastroesophageal reflux disease. PLAN: Admit under Geropsych. Psych has been consulted. His home medications; Eliquis, aspirin, atropine, ___, Cardizem, donepezil, Lexapro, ferrous sulfate, finasteride, latanoprost and Ativan have been continued. The patient will be evaluated by Psych. The patient is currently altered; however, he is not combative towards the staff. Continue to monitor for signs or symptoms of psychosis. [facility]# [id number]
[2018-02-02] MEDS ORDERED: Non-Formulary Item 1 EA (Apixaban [Eliquis] 5 MG) PO SCH (17:00)
[2018-02-02] MEDS: Diltiazem 30 mg Tab PO SCH (17:27)
[2018-02-02] MEDS: Escitalopram Oxalate 5 mg Tab PO SCH (21:05)
--- NOTE | 2018-02-03 03:51 | Psychosocial Evaluation ---
DATE OF SERVICE: 02/02/2018 JUSTIFICATION FOR HOSPITALIZATION: Agitation and hostile behaviors at the [facility]. CHIEF COMPLAINT: "I don't know why I am here. They told me to come here." HISTORY OF PRESENT ILLNESS: A 72-year-old male coming in from [facility], agitated, apparently hostile, combative. States he got into some altercation with staff. Details are unclear, attests to depression, some anxiety, not happy to be here. Fair sleep, fair appetite. Staff notes he has been quiet, pretty withdrawn on exam. PAST PSYCHIATRIC HISTORY: Noted history of depression, possibly dementia. FAMILY HISTORY: Noncontributory. SOCIAL HISTORY: The patient is living at [facility]. Currently . He states he has 2 children and their involvement is as of at this point unclear. We will need to increase collateral. The patient notes that he used to work in the as a communications project manager. He states that a lot of his depression is because he felt that he worked very hard in his life, but states he has "nothing to show for it," attesting to hopelessness, helplessness, despair, psychological distress and turmoil. Medications were noted. MEDICAL HISTORY: Please see full H and P. MENTAL STATUS EXAMINATION: Stated age. Fair eye contact. Speech very slowed. Mood "depressed." Affect is withdrawn. Thought processes were slowed, but seemingly linear and engaged. No overt SI or HI. No overt psychotic symptoms, impulse control poor. Insight and judgment questionable. PROVISIONAL DIAGNOSES: Mood, unspecified; anxiety, unspecified. Under medical, please see full H and P. ESTIMATED LENGTH OF STAY: 5-6 days. Pain 0/10. ASSESSMENT: The patient symptomatic, apparently became unruly, agitated, and combative. PLAN: I will start low dose Lexapro. TREATMENT PLAN: Includes group as well as milieu therapy. CONDITIONS FOR DISCHARGE: Improved mood, improved affect, cessation of any SI or HI, better control of any combative symptoms. JOB# [id number]
[2018-02-03] MEDS: Multivitamin Tab PO SCH (10:29)
[2018-02-03] MEDS: Ferrous Sulfate 325 MG TAB PO SCH (10:29)
[2018-02-03] MEDS: Aspirin 81mg Chewable Tab PO SCH (10:30)
[2018-02-03] MEDS: Pantoprazole 40 mg EC Tab PO SCH (10:30)
[2018-02-03] MEDS: Diltiazem 30 mg Tab PO SCH (10:51)
[2018-02-03] MEDS: Escitalopram Oxalate 5 mg Tab PO SCH (21:12)
--- NOTE | 2018-02-04 02:53 | Progress Notes ---
DATE: 02/03/2018 SUBJECTIVE: The patient in the hospital. Apparently have been quite combative, denying this. He slept about 7 hours last night. Well oriented x 4, depressed, telling staff he does not want to go back to previous retirement, but telling me today he does want to go back, some inconsistencies there. Staff noting some periods of confusion, but well oriented on my exam today. The patient denying he was aggressive and agitated, but per documentation, he was agitated and quite aggressive. Medications were noted. The patient was telling me about his mood yesterday alluding to depression. ASSESSMENT: The patient is calm, cooperative, depressed, withdrawn. We will continue to monitor. Concerns about impulsivity. Medications were noted. He is tolerant of Lexapro. JOB# [id number]
[2018-02-04] MEDS: Diltiazem 30 mg Tab PO SCH ×3 (08:57→17:03)
[2018-02-04] MEDS: Multivitamin Tab PO SCH (08:59)
[2018-02-04] MEDS: Aspirin 81mg Chewable Tab PO SCH (08:59)
[2018-02-04] MEDS: Ferrous Sulfate 325 MG TAB PO SCH (08:59)
[2018-02-04] MEDS: Pantoprazole 40 mg EC Tab PO SCH (08:59)
[2018-02-04] MEDS: Escitalopram Oxalate 5 mg Tab PO SCH (21:21)
--- NOTE | 2018-02-04 21:32 | Progress Notes ---
DATE: 02/04/2018 SUBJECTIVE: The patient seems to be calmer, more cooperative. He states his mood is "okay." No lashing out behaviors, no escalation of behaviors, getting along well with staff and peers, mostly withdrawn his medication. No side effects. Medications were noted. ASSESSMENT: The patient seems to be calmer, more cooperative, impulse control. Staff noting improvement. PLAN: We will monitor. The patient seems to have much calmer, seems to be able to voice his needs. JOB# [id number]
[2018-02-05] MEDS: Pantoprazole 40 mg EC Tab PO SCH (10:22)
[2018-02-05] MEDS: Multivitamin Tab PO SCH (10:22)
[2018-02-05] MEDS: Aspirin 81mg Chewable Tab PO SCH (10:23)
[2018-02-05] MEDS: Ferrous Sulfate 325 MG TAB PO SCH (10:23)
[2018-02-05] MEDS: Diltiazem 30 mg Tab PO SCH ×2 (10:24→17:10)
[2018-02-05] MEDS: Escitalopram Oxalate 5 mg Tab PO SCH (21:24)
--- NOTE | 2018-02-06 01:17 | Progress Notes ---
DATE: 02/05/2018 The patient in the hospital, noted to be withdrawn, depressed. He did seem to be showing signs of improvement, but is alluding to sadness now, a lot of social withdrawal. Staff noting he seems to be quite depressed, upset. No overt SI. He has not been aggressive or agitated. Sleeping fairly well, eating fairly well, minimally interactive on exam, attests to depressed mood. ASSESSMENT: The patient seems to be depressed, withdrawn, ongoing safety concerns, concerns about the possibility. PLAN: We will continue to monitor. The patient does have a 7-day bed hold. We will attempt to stabilize and discharge on Thursday, so that he will not lose his bed at [facility]-way facility. Plan for ongoing stabilization in the hospital. Recommend a step-down to a half-way on 02/08/2018. Recommend continue titration of antidepressant medications. JOB# [id number]
[2018-02-06] MEDS: Aspirin 81mg Chewable Tab PO SCH (10:00)
[2018-02-06] MEDS: Multivitamin Tab PO SCH (10:00)
[2018-02-06] MEDS: Ferrous Sulfate 325 MG TAB PO SCH (10:00)
[2018-02-06] MEDS: Diltiazem 30 mg Tab PO SCH ×2 (10:00→17:07)
[2018-02-06] MEDS: Pantoprazole 40 mg EC Tab PO SCH (10:00)
[2018-02-06] MEDS: Escitalopram Oxalate 5 mg Tab PO SCH (21:00)
--- NOTE | 2018-02-07 03:52 | Progress Notes ---
DATE: 02/06/2018 SUBJECTIVE: The patient was seen and evaluated. The patient's chart reviewed. This is a 72-year-old male coming [facility] becoming hostile, combative. In hospital course, nursing staff reported the patient has been mostly disengaged, withdrawn, isolated, and minimally interactive. Today on [id number] evaluation, the patient reports being depressed, obsessed . He reports no side effects of the medication. MENTAL STATUS EXAMINATION: Observed to be withdrawn and depressed. ASSESSMENT AND PLAN: History of depression, stabilizing. Working very closely with the spring encaser for safety for the next 48 hours. At this point, the patient is currently being treated with Aricept 10 mg a day, Lexapro 5 mg a day, which he has been able to tolerate with no complications. We will continue with primary psychiatrist's treatment plan and goals. JOB# [id number]
[2018-02-07] MEDS: Multivitamin Tab PO SCH (09:41)
[2018-02-07] MEDS: Pantoprazole 40 mg EC Tab PO SCH (09:41)
[2018-02-07] MEDS: Diltiazem 30 mg Tab PO SCH (09:41)
[2018-02-07] MEDS: Aspirin 81mg Chewable Tab PO SCH (09:41)
[2018-02-07] MEDS: Ferrous Sulfate 325 MG TAB PO SCH (09:41)
[2018-02-07] MEDS: Escitalopram Oxalate 5 mg Tab PO SCH (20:32)
--- NOTE | 2018-02-07 20:55 | Progress Notes ---
DATE: 02/07/2018 The patient was seen and evaluated, chart reviewed. Today on [id number] evaluation, the patient observed to continue to be isolative, withdrawn, but also some improvements noted in the last 24-48 hours. Today on [id number] evaluation, the patient denies any side effect of medications reported. He is starting to feel more optimistic, less depressed. MENTAL STATUS EXAMINATION: Little less depressed, was observed to be withdrawn and disengaged. ASSESSMENT AND PLAN: The patient is a 72-year-old male with a history of depression, stabilizing, working very closely with case management for safe dispo next 24 hours. We will continue with primary psychiatrist's treatment plan and goals, which includes Aricept, Lexapro, as he is able to tolerate medication without complications or side effects of the medications. JOB# [id number]
[2018-02-08] MEDS: Diltiazem 30 mg Tab PO SCH ×3 (08:37→17:50)
[2018-02-08] MEDS: Aspirin 81mg Chewable Tab PO SCH (09:29)
[2018-02-08] MEDS: Multivitamin Tab PO SCH (09:30)
[2018-02-08] MEDS: Pantoprazole 40 mg EC Tab PO SCH (09:30)
[2018-02-08] MEDS: Ferrous Sulfate 325 MG TAB PO SCH (09:30)
--- NOTE | 2018-02-08 15:35 | Discharge Summary ---
DATE OF DISCHARGE: 02/08/2018 IDENTIFYING INFORMATION: The patient is a 72-year-old male. CHIEF COMPLAINT: "I don't know why I am here, they told me to come here." HISTORY OF PRESENT ILLNESS: The patient came from [facility]. He was hostile, combative. He got into some altercation with the staff. He states that his depression and anxiety, not happy to be here. He sleeps well, eats well. Staff notes that he has been quiet, pretty withdrawn on exam. History of depression and possible dementia. The patient has been at [facility] facility. He is with two children. COURSE IN THE HOSPITAL: ____ patient and he was controlled medication and medical condition, aspirin 81 mg daily, atropine 1% ophthalmic suspension one drop to both eyes twice a day. He was on Dulcolax 10 mg daily as needed and Cardizem 60 mg twice a day, Aricept 10 mg at bedtime and he was on dorzolamide 2% ophthalmic eye drops each eye 3 times a day. He was initiating Lexapro 5 mg at bedtime, iron 325 mg daily and he was on Proscar 5 mg daily, multivitamin daily, Protonix 40 mg daily, and Xarelto 10 mg daily, Flomax 0.4 mg daily, tramadol 50 mg at bedtime as needed every 6 hours ____. The patient progressively got better. The nurse ____ and easy to redirect. He was sleeping well, eating well. So as he was doing well in the last 7 days with no acting out behavior, responding well to redirection, sleeping well, eating well. We felt he could be discharged back to [facility] facility. FINAL DIAGNOSES: AXIS I: Psychotic. No major depression, recurrent with no psychosis. MEDICAL DIAGNOSES: Benign prostatic hypertrophy, degenerative joint disease, glaucoma, atrial fibrillation, hypertension, anemia of chronic illness. The patient will be going back to [facility] from nursing facility. FOLLOWUP: With his psychiatrist and primary care physician. EXPECTED OUTCOME: Stable if the patient complies with the above. JOB# [id number]
[2018-02-08] MEDS: Escitalopram Oxalate 5 mg Tab PO SCH (20:51)
[2018-02-09] MEDS: Aspirin 81mg Chewable Tab PO SCH (09:12)
[2018-02-09] MEDS: Ferrous Sulfate 325 MG TAB PO SCH (09:13)
[2018-02-09] MEDS: Diltiazem 30 mg Tab PO SCH (09:13)
[2018-02-09] MEDS: Pantoprazole 40 mg EC Tab PO SCH (09:14)
[2018-02-09] MEDS: Multivitamin Tab PO SCH (09:14)
--- NOTE | 2018-02-09 22:06 | Progress Notes ---
DATE: 02/09/2018 Case was discussed with staff of the patient, reviewed records. The patient was supposed to have been discharged yesterday; however, apparently they come in to interview him today, could not go to the same place. He is sleeping well, eating well. The staff reported being a moderate patient. They have no issue with him. No side effects with the medications. Staff have to help him with his ADLs and we will continue to work with the patient in group therapy, milieu therapy, and adjust medications as needed. JOB# [id number]
== END 2018-02-09 15:10 | DRG 885 ==
LOC: ER 17:14 → GERO2 20:34
PROVIDERS: ADMIT Psychiatry & Neurology Psychiatry; ATTEND Psychiatry & Neurology Psychiatry
DX: F29 Unspecified psychosis not due to a substance or known physiological condition (principal); F02.81 Dementia in other diseases classified elsewhere, unspecified severity, with behavioral disturbance; G93.41 Metabolic encephalopathy; I10 Essential (primary) hypertension; E78.5 Hyperlipidemia, unspecified; N28.9 Disorder of kidney and ureter, unspecified; F39 Unspecified mood [affective] disorder; F41.9 Anxiety disorder, unspecified; G30.9 Alzheimer's disease, unspecified; H40.9 Unspecified glaucoma; M19.90 Unspecified osteoarthritis, unspecified site; I48.91 Unspecified atrial fibrillation; D63.8 Anemia in other chronic diseases classified elsewhere; N40.0 Benign prostatic hyperplasia without lower urinary tract symptoms; K21.9 Gastro-esophageal reflux disease without esophagitis; M62.81 Muscle weakness (generalized); Z82.49 Family history of ischemic heart disease and other diseases of the circulatory system
CPT/HCPCS: 36415-UA; 80053-TC; 80061-TC; 80320-TC; 80329-TC; 83036-90; 84443-TC; 85025-TC; 86592-TC; 93005; Z7610